=== PATIENT | male | born 1945 | race Caucasian/White ===

== ENCOUNTER → 2017-07-20 | Outpatient (CLI) | payer MEDICARE ==
[2017-07-20 12:10] LABS: Albumin 4.4 g/dL (3.5-5.0); Chloride 106 mmol/L (98-107); Cholesterol 176 mg/dL (<200); Glucose 91 mg/dL (74-99); Triglycerides 142 mg/dL (<150)
[2017-07-20 12:11] LABS: ALT 38 U/L (21-72); AST 32 U/L (17-59); Alkaline Phosphatase 73 U/L (38-126); Anion Gap 12 mmol/L; Blood Urea Nitrogen 16 mg/dL (9-20); Calcium 9.3 mg/dL (8.4-10.2); Carbon Dioxide 26 mmol/L (22-30); HDL Cholesterol 29 mg/dL (40-60); LDL Cholesterol,Calculated 119 mg/dL (0-99); Potassium 4.9 mmol/L (3.5-5.1); Sodium 144 mmol/L (137-145); Total Bilirubin 0.9 mg/dL (0.2-1.3)
== END | disposition home or self-care (01) ==
LOC: LABWHC1 11:00
PROVIDERS: ATTEND Internal Medicine Clinical Cardiac Electrophysiology
DX: E78.2 Mixed hyperlipidemia (principal); E03.9 Hypothyroidism, unspecified
CPT/HCPCS: 36415; 80053; 80061; 84443

== ENCOUNTER → 2018-06-23 | Outpatient (CLI) | payer MEDICARE ==
[2018-06-23 16:40] LABS: ALT 38 U/L (10-49); AST 35 U/L (14-35)
== END | disposition home or self-care (01) ==
LOC: LABWHC1 10:03
PROVIDERS: ATTEND Dermatology Dermatopathology
DX: B35.1 Tinea unguium (principal); Z79.899 Other long term (current) drug therapy
CPT/HCPCS: 36415; 84450; 84460

== ENCOUNTER → 2019-11-21 | Outpatient (CLI) | payer MEDICARE ==
[2019-11-21 12:20] LABS: HGB 15.8 gm/dL (13.0-17.5); MCH 34.3 pg (25.0-35.0); MCHC 33.6 g/dL (31.0-37.0); MCV 102.1 fL (80.0-100.0); Mean Platelet Volume 8.2; Platelet Count 192 k/uL (150-450); RDW 12.3 % (11.5-15.5); WBC 6.9 k/uL (3.8-10.6)
[2019-11-21 22:47] LABS: Anion Gap 10.3 mmol/L (4.00-12.00); Calcium 8.8 mg/dL (8.7-10.3); Carbon Dioxide 23.7 mmol/L (21.6-31.8); Chol/HDL Ratio 4.17; Non-African American GFR(CKD) 73.3 (60.0-200.0); Potassium 4.4 mmol/L (3.5-5.5)
== END | disposition home or self-care (01) ==
LOC: LABWHC1 10:16
PROVIDERS: ATTEND Physician Assistant
DX: Z00.00 Encounter for general adult medical examination without abnormal findings (principal); E55.9 Vitamin D deficiency, unspecified; R53.83 Other fatigue; I42.9 Cardiomyopathy, unspecified
CPT/HCPCS: 36415; 80048; 80061; 82306; 84443; 85027

== ENCOUNTER 2020-05-14 08:41 | Day surgery (SDC) | payer MEDICARE ==
[2020-05-08 12:02] VITALS: BMI 25.7
[~2020-05-14 08:41] MED LIST: LACTATED RINGERS 1,000 ML IV SCH
[2020-05-14 09:22] VITALS: RESP 16; TEMP 98.5
[2020-05-14] MEDS ORDERED: LIDOCAINE 1% (10MG/ML) FOR IV START INTRADERMA ONE (09:23)
[2020-05-14] MEDS ORDERED: PROPOFOL 10 MG/ML 20 ML VIAL IV ONE (09:47)
--- NOTE | 2020-05-14 10:34 | P.PCN ---
Date of Procedure: 05/14/20 Procedure(s) Performed: BRIEF HISTORY: Patient is a []-year-old pleasant [] scheduled for an elective colonoscopy as a part of screening for colorectal neoplasia. He has family history of colon cancer diagnosed in his father at age 80 PROCEDURE PERFORMED: Colonoscopy with snare polypectomy. PREOPERATIVE DIAGNOSIS: Screening for colon cancer and family history of colon cancer. IV sedation per Anesthesia. PROCEDURE: After informed consent was obtained, the patient, was brought into the endoscopy unit. IV sedation was administered by Anesthesia under continuous monitoring. Digital rectal examination was normal. Initially the Olympus CF-160 flexible video colonoscope was then inserted in the rectum, and could not be advanced in the sigmoid colon. Scope was removed and a. Colonoscopy was then inserted into the rectum and gradually gradually advanced into the cecum with moderate to severe difficulty. Careful examination was performed as the scope was gradually being withdrawn. Ileocecal valve and the appendiceal orifice were visualized and appeared normal. Prep was excellent. Mucosa of the cecum appeared normal. Ascending colon there were 2 polyps measuring 5 mm in size both of which were removed by snare polypectomy. Rest of the, ascending colon, transverse colon, descending colon, sigmoid colon, and rectum appeared normal. Extensive left-sided diverticulosis seen. Retroflexion was performed in the rectum and no lesions were seen. The patient tolerated the procedure well. IMPRESSION: 5 mm 2 ascending colon polyp status post polypectomy Severe sigmoid diverticulosis RECOMMENDATIONS: Findings of this examination were discussed with the patient as well as his family. He was advised to follow with the biopsy results. Recommend repeat colonoscopy in 5 years because of the family history of colon cancer.
[2020-05-14 10:50] VITALS: BP 117/74; PULSE 80
== END 2020-05-14 11:34 | disposition home or self-care (01) ==
LOC: ORWHC2ENDO 08:41
PROVIDERS: ATTEND Internal Medicine Gastroenterology
DX: Z12.11 Encounter for screening for malignant neoplasm of colon (principal); D12.2 Benign neoplasm of ascending colon; K57.30 Diverticulosis of large intestine without perforation or abscess without bleeding; I10 Essential (primary) hypertension; Z80.0 Family history of malignant neoplasm of digestive organs; Z79.82 Long term (current) use of aspirin; Z79.899 Other long term (current) drug therapy; Z88.0 Allergy status to penicillin
CPT/HCPCS: 88305; 45385; J2704

== ENCOUNTER → 2021-07-02 | Outpatient (CLI) | payer MEDICARE ==
--- NOTE | 2021-07-02 18:27 | CONS ---
CONSULTATION DATE OF SERVICE: 07/02/2021 This 76-year-old gentleman has been evaluated in Sleep Center for his sleep problems, which include difficulties initiating sleep and awakenings from sleep. HISTORY OF PRESENT ILLNESS/SLEEP-WAKE EVALUATION: Patient's usual sleep schedule is from between 11 p.m. and midnight until about 6 or 7 a.m. He does have problems with falling asleep, has a TV set in the bedroom. He usually sleeps on the back position. He does snore. He possibly has episodes of stopped breathing during sleep, which his ex- told him. In the morning he wakes up tired, has problems with memory. [place] Sleepiness Scale is 2. Usually the patient takes one nap a day, though. PAST MEDICAL HISTORY: Positive for dilated heart cardiomyopathy, hyperlipidemia. MEDICATIONS: 1. Ambien 10 mg at bedtime. 2. Effexor 37.5 mg once a day. 3. Metoprolol 25 mg once a day. 4. Atorvastatin 20 mg once a day. 5. Losartan 25 mg once a day. SOCIAL HISTORY: Negative for smoking. Alcohol consumption occasional. FAMILY HISTORY: Cancer. REVIEW OF SYSTEMS: Awakenings from sleep, difficulties initiating sleep, of sleepiness during the day. No fevers. No double vision. No recent chest pain. No shortness of breath. No abdominal pain. No bleeding episodes. No blood in the urine. No seizure episodes. PHYSICAL EXAMINATION: GENERAL: Pleasant gentleman without distress. VITAL SIGNS: BP 115/69, HR 77, RR 16, height 5 feet 11 inches, weight 190.8, temperature 97.3, oxygen saturation at room air 96%. HEENT: PERRLA, EOMI, evaluation of oropharynx showed tongue protrudes midline. Extremely low position of soft palate; Mallampati IV. NECK: Supple, no JVD. Thyroid is not palpable. Neck is wide; 17-1/4 inches in circumference. LUNGS: Clear to percussion and to auscultation. Good air exchange. No wheezing or rhonchi. HEART: S1, S2 regular. No murmurs, gallops, or rubs. ABDOMEN: Soft and nontender. Bowel sounds are present. No organomegaly appreciated. EXTREMITIES: No clubbing or cyanosis. BOTTLE BOOTH ATTENDANT: Awake, alert, and oriented X3. Cranial nerves 2 to 7 intact. There is no fasciculation or atrophy. noted. No focal deficits observed. IMPRESSION: 1. Snoring, episodes of stopped breathing during sleep in the past, extremely low position of soft palate, Mallampati IV, wide neck, 17-1/4 inches in circumference; obstructive sleep apnea-hypopnea syndrome. 2. History of restless leg symptoms. 3. Difficulties initiating sleep. Possible psychophysiological insomnia. 4. History of dilated cardiomyopathy. 5. Hyperlipidemia. PLAN: 1. Sleep hygiene with regular time in bed for 8 hours. 2. Polysomnogram for evaluation of patient's breathing during sleep and also to check for any leg movements at night. 3. Stimulus control, worry time, paradoxical intention. 4. Precautions related to driving. No driving if feeling sleepiness. 5. Following plan after reviewing results of sleep study. Thank you very much for referring this patient for consultation. Sincerely, Geronimo Ramirez MD, PhD, FAASM Diplomat of [place] [employer] Sleep Medicine Board of [place] [employer] Milling Machine Set Up Operator of [facility] [place] MMODL / IJN: [id number] /
== END | disposition home or self-care (01) ==
LOC: SLEEP 15:19
PROVIDERS: ATTEND Internal Medicine
DX: G47.33 Obstructive sleep apnea (adult) (pediatric) (principal); E78.5 Hyperlipidemia, unspecified; Z86.69 Personal history of other diseases of the nervous system and sense organs; Z98.890 Other specified postprocedural states
CPT/HCPCS: 99211

== ENCOUNTER → 2021-12-16 | Outpatient (CLI) | payer MEDICARE ==
--- NOTE | 2021-12-16 14:55 | P.PN ---
Subjective DATE: FOLLOW UP VISIT. Patient with obstructive sleep apnea hypopnea syndrome return to sleep center for follow-up visit. Recently patient had sleep study which documented obstructive sleep apnea hypopnea syndrome. Patient was initiated on PAP therapy and today is first visit after treatment was started. I discuss results of sleep studies with patient in details. Patient was able to use PAP equipment every night for the whole night. She did not feel comfortable with full face mask and to it was changed to nasal pillow m ask. The patient does not have significant problems with the mask, PAP pressure and humidification at the present time. [place] sleepiness scale is 3, which is totally normal. I checked information from PAP unit. PAP unit pressure 6-12, average 9.7 cm H2O. Usage is 90 % for more then 4 hours, average 7 hours per night. Leak is 5.1 l/m, which is in acceptable range. Apnea Hypopnea Index is 3.5, which is normal. MEDICATIONS:1. Metoprolol 25 mg once a day 2. Atorvastatin 20 mg once a day 3. Effexor 37.5 mg once a day 4. Losartan 25 mg once a day 5. Ambien 10 mg at bedtime, patient is trying to decrease the dose and using 5 mg if necessary During physical exam: GENERAL: A pleasant patient without any distress. VITAL SIGNS: BP 118/67, HR 75, RR 16, weight 189.8, temperature 97.1, oxygen saturation at room air 97. HEENT: PERRLA, EOMI.low position of soft palate, Mallapati 4 . NECK: Supple. No JVD. LUNGS: Clear to percussion and to auscultation. Good air exchange. No wheezing or rhonchi. HEART: S1, S2 regular. ABDOMEN: Soft and nontender.[] EXTREMITIES: No clubbing or cyanosis. STATION CLEANING PORTER: Awake, alert, and oriented x3. No focal deficit. Impressions: 1. Obstructive sleep apnea-hypopnea syndrome. Patient demonstrated great compliance with treatment, benefiting from treatment. 2. History of restless leg symptoms. 3. History of dilated cardiomyopathy. 4. History of difficulties to initiate sleep. Psychophysiological insomnia. Presently it is better.. 5. Hyperlipidemia. Plan: 1. Continue using PAP equipment every night for the whole night. 2. To change air filter at least 1-2 times per month. 3. PAP unit should stay lower then position of the head. 4. Advised patient to remove all remaining water from humidifier canister daily and make it dry after each usage. Refill canister with fresh distilled water before each usage. 5. Sleep hygiene with regular time in bed for at least 8 hours. 6. Precautions related to driving. No driving if feel any sleepiness. 7. I will maintain prescription for PAP supplies including mask, tube, filters. 8. Follow up visit in 6 months or earlier if patient has any problems. 9. Watching weight. Thank you very much for allowing me to participate in the management of your patient. Geronimo Ramirez MD, PhD, FAASM. Diplomat of [place] [employer], Sleep Medicine Board by [employer] Tunnel Elastic Operator [employer] of [facility] [place]
== END ==
LOC: SLEEP 13:57
PROVIDERS: ATTEND Internal Medicine
DX: G47.33 Obstructive sleep apnea (adult) (pediatric) (principal); E78.5 Hyperlipidemia, unspecified; Z99.89 Dependence on other enabling machines and devices; Z87.39 Personal history of other diseases of the musculoskeletal system and connective tissue; Z86.79 Personal history of other diseases of the circulatory system; Z88.0 Allergy status to penicillin

== ENCOUNTER → 2022-07-01 | Outpatient (CLI) | payer MEDICARE ==
--- NOTE | 2022-07-01 11:11 | P.PN ---
Subjective DATE: 07/01/2022 FOLLOW UP VISIT. Patient with obstructive sleep apnea hypopnea syndrome return to sleep center for follow-up visit. Information from previous visit have been reviewed. Patient is using PAP equipment every night for the whole night, getting PAP supplies in time. The patient does not have significant problems with the mask, PAP unit and humidification. [place] sleepiness scale is 5, which is normal. I checked information from PAP unit. PAP unit pressure 6-12, average 9.5 cm H2O. Usage is 90% and 83 % for more then 4 hours, average 6.5 hours per night. Leak is 3.0 l/m, which is in acceptable range. Apnea Hypopnea Index is 4.9, which is normal. MEDICATIONS:1. Venlafaxine 37.5 mg once a day 2. Zolpidem 5 mg once a day 3. Metoprolol 25 mg once a day 4. Atorvastatin 20 mg once a day 5. Losartan 25 mg once a day During physical exam: GENERAL: A pleasant patient without any distress. VITAL SIGNS: BP 124/66, HR 69, RR 12, weight 198.2, patient increased weight on 9 pounds, BMI 27.0, temperature 97.6, oxygen saturation at room air 96% . HEENT: PERRLA, EOMI.low position of soft palate, Mallapati 4 . NECK: Supple. No JVD. LUNGS: Clear to percussion and to auscultation. Good air exchange. No wheezing or rhonchi. HEART: S1, S2 regular. ABDOMEN: Soft and nontender.[] EXTREMITIES: No clubbing or cyanosis. DEPARTMENT MGR: Awake, alert, and oriented x3. No focal deficit. I teach patient how to adjust humidity in CPAP unit. Impressions: 1. Obstructive sleep apnea-hypopnea syndrome. Patient demonstrated great compliance with treatment, benefiting from treatment. 2. History of dilated cardiomyopathy. 3. Psychophysiological insomnia. 4. Hyperlipidemia. 5. History of rhinitis. Plan: 1. Continue using PAP equipment every night for the whole night. 2. To change air filter at least 1-2 times per month. 3. PAP unit should stay lower then position of the head. 4. Advised patient to remove all remaining water from humidifier canister daily and make it dry after each usage. Refill canister with fresh distilled water before each usage. 5. Sleep hygiene with regular time in bed for at least 8 hours. 6. Precautions related to driving. No driving if feel any sleepiness. 7. I will maintain prescription for PAP supplies including mask, tube, filters. 8. Watching weight. 9. Follow up visit in 6 months or earlier if patient has any problems. Thank you very much for allowing me to participate in the management of your patient. Geronimo Ramirez MD, PhD, FAASM. Diplomat of [place] [employer], Sleep Medicine Board by [place] [employer] Commercial Insurance Underwriter of [facility] [place]
== END ==
LOC: SLEEP 10:22
PROVIDERS: ATTEND Internal Medicine
DX: G47.33 Obstructive sleep apnea (adult) (pediatric) (principal); Z98.890 Other specified postprocedural states; E78.5 Hyperlipidemia, unspecified; J34.2 Deviated nasal septum; Z99.89 Dependence on other enabling machines and devices; Z79.899 Other long term (current) drug therapy; Z88.0 Allergy status to penicillin
CPT/HCPCS: 99212

== ENCOUNTER → 2023-01-13 | Outpatient (CLI) | payer MEDICARE ==
--- NOTE | 2023-01-13 11:51 | P.PN ---
Subjective DATE: 01/13/2023 FOLLOW UP VISIT. Patient with obstructive sleep apnea hypopnea syndrome return to sleep center for follow-up visit. Information from previous visit have been reviewed. Patient is using PAP equipment every night for the whole night, getting PAP supplies in time. The patient does not have significant problems with the mask, PAP unit and humidification. [place] sleepiness scale is 2. I checked information from PAP unit. PAP unit pressure 6-13, average 9.3 cm H2O. Usage is 90 % for more then 4 hours, average 6.75 hours per night. Leak is perfect 1.8 l/m. Apnea Hypopnea Index is 4.2, which is normal. MEDICATIONS:1. Metoprolol 25 mg once a day 2. Atorvastatin 20 mg once a day 3. Losartan 25 mg once a day 4. Venlafaxine 37.5 mg once a day 5. Zolpidem 5 mg once a day During physical exam: GENERAL: A pleasant patient without any distress. VITAL SIGNS: BP 112/62, HR 68, RR 12 , weight 197.2, temperature 97.7, oxygen saturation at room air 98 % . HEENT: PERRLA, EOMI.low position of soft palate, Mallapati 4 . NECK: Supple. No JVD. LUNGS: Clear to percussion and to auscultation. Good air exchange. No wheezing or rhonchi. HEART: S1, S2 regular. ABDOMEN: Soft and nontender.[] EXTREMITIES: No clubbing or cyanosis. E D TECH: Awake, alert, and oriented x3. No focal deficit. Impressions: 1. Obstructive sleep apnea-hypopnea syndrome. Patient demonstrated great compliance with treatment, benefiting from treatment. 2. History of dilated cardiomyopathy. 3. Psychophysiological insomnia. 4. Hyperlipidemia. 5. History of rhinitis. Plan: 1. Continue using PAP equipment every night for the whole night. 2. To change air filter at least 1-2 times per month. 3. PAP unit should stay lower then position of the head. 4. Advised patient to remove all remaining water from humidifier canister daily and make it dry after each usage. Refill canister with fresh distilled water before each usage. 5. Sleep hygiene with regular time in bed for at least 8 hours. 6. Precautions related to driving. No driving if feel any sleepiness. 7. I will maintain prescription for PAP supplies including mask, tube, filters. 8. Follow up visit in 6 months or earlier if patient has any problems. 9. Watching weight. Thank you very much for allowing me to participate in the management of your patient. Geronimo Ramirez MD, PhD, FAASM. Diplomat of [employer], Sleep Medicine Board by [employer] Investigative Analyst of [facility] [place]
== END ==
LOC: 3 N SLEEP 11:07
PROVIDERS: ATTEND Internal Medicine
DX: G47.33 Obstructive sleep apnea (adult) (pediatric) (principal); F51.04 Psychophysiologic insomnia; E78.5 Hyperlipidemia, unspecified; Z99.89 Dependence on other enabling machines and devices; Z88.0 Allergy status to penicillin; Z79.82 Long term (current) use of aspirin; Z87.09 Personal history of other diseases of the respiratory system; Z86.79 Personal history of other diseases of the circulatory system
CPT/HCPCS: 99212

== ENCOUNTER → 2023-05-05 | Outpatient (CLI) | payer MEDICARE ==
--- NOTE | 2023-05-06 04:10 | MR ---
EXAMINATION TYPE: MR lumbar spine wo con DATE OF EXAM: 05/05/2023 COMPARISON: Lumbar spine x-ray April 28, 2023 HISTORY: Back pain-bilateral buttocks down into back of thighs. Spondylosis and radiculopathy. TECHNIQUE: Multiplanar, multisequence imaging of the lumbar spine is performed without IV contrast. FINDINGS: Sagittal images of the lumbar spine show vertebral body heights to appear satisfactory. The re is grade 1 retrolisthesis L2 on L3, anterolisthesis L3 on L4, and grade 1 retrolisthesis L4 on L5 redemonstrated. Multilevel disc desiccation is present. There is advanced disc space narrowing at L5 -S1 level. There is mild to moderate disc space narrowing at L2-L3 level. The conus medullaris is nor mal in position and signal emptying into the inferior L1 level. The bone marrow signal intensity is within normal limits. Mild to moderate multilevel anterior spurring is seen. Posterior disc herniatio n at T11-T12 level effaces the anterior thecal sac on sagittal image 9 Axial images at T12-L1 level shows a mild broad-based disc bulge with right paracentral disc protrusi on component and annular tear mildly effacing the anterior thecal sac. Patent bilateral neural forami na. Axial images at L1-L2 level shows mild facet arthropathy bilaterally. Axial images at L2-L3 level shows spondylolisthesis with moderate bilateral facet arthropathy and lig amentum flavum hypertrophy effacing the bilateral posterolateral thecal sac. There is mild to moderat e broad-based disc bulge with left lateral disc protrusion component mildly effacing the anterior the solitario sac. Right-sided neural foramen is patent. Left-sided neural foramina shows mild to moderate narr owing. Axial images at L3-L4 level show moderate to advanced facet arthropathy and ligamentum flavum hypertr ophy effacing the posterior lateral thecal sac. There is mild/moderate broad-based posterior disc pro trusion with right foraminal disc protrusion component effacing the anterior thecal sac. There is mil d right greater than left bilateral neural foraminal narrowing. Axial images at L4-L5 levels with spondylolisthesis with moderate to advanced facet arthropathy and l igamentum flavum hypertrophy effacing the bilateral lateral thecal sac. There is moderate broad-based disc bulge effacing the anterior thecal sac. There is moderate left greater than right bilateral jay ral foraminal narrowing. Axial images at L5-S1 level show mild facet arthropathy. Spinal canal is preserved. Bilateral neural foramina are patent. Paraspinal muscle bulk is maintained. Some cortical thinning in both kidneys is seen. IMPRESSION: Multilevel spondylolisthesis and degenerative change in the lumbar spine as detailed grecia taylor
== END | disposition home or self-care (01) ==
LOC: RADMRIMAIN 20:15
PROVIDERS: ATTEND Orthopaedic Surgery
DX: M43.16 Spondylolisthesis, lumbar region (principal); M47.26 Other spondylosis with radiculopathy, lumbar region
CPT/HCPCS: 72148

== ENCOUNTER → 2023-06-01 | Outpatient (CLI) | payer MEDICARE ==
[2023-06-01 09:50] VITALS: BP 132/72; PULSE 77; RESP 15; TEMP 98.4
--- NOTE | 2023-06-01 14:52 | P.PAINPG ---
PQRS Measure Charge Sheet Comment: HISTORY OF PRESENT ILLNESS: A 78 yr old female as a referral from [facility] presents today w severe and chronic LBP > 1 yr secondary to DDD, spondylosis and facet arthropathy without myelopathy for evaluation. Pt states pain level is provoked at 9 /10 in intensity, constant, localized in the lumbar spine, predominantly axial, sore in character w occasional shooting pain towards the buttocks. Pain is provoked by bending. Pain is alleviated by PT x 6 wks which ended in May 2023, medications (Aleve), manual massage, repositioning and rest. Oswestry axial pain score at 29. PMH: OA, HTN, MDD PSH: Colonoscopies (2015, 2020), Polysomnography (2021) SH: Negative x3 FH: Non contributory All: See list Meds: See list REVIEW OF ORGAN SYSTEMS: CONSTITUTIONAL: No fevers or chills. No recent weight loss. NEUROLOGICAL: + numbness and tingling along the distal e xtremities. No seizure disorders or headaches. MUSCULOSKELETAL: + pain PSYCHIATRIC: Denies current depression or suicidal thoughts. Physical Examinations : Constitutional : Cooperative , not in acute distress . Neurologic : Cranial nerve II to XII intact. No focal neurological deficits. Psychiatric : alert & oriented x 3. Matching mood & appropriate affect. Judgment & insight intact. Musculoskeletal : Cervical Spine Motor strength in the deltoid and biceps: Normal right side. Normal Left side Motor strength biceps and the wrist extensors: Normal right side . Normal left side Motor strength in the triceps muscle: Normal right side. Normal left side Deep tendon reflexes: Normal at the biceps. Normal at Brachioradialis. Normal at triceps Vertebral body tenderness to deep palpation over Cervical facet loading test: positive bilaterally Spurling test: positive bilaterally Neck distraction test: positive bilaterally Darlene sign: positive bilaterally Lumbar spine Motor strength lower extremities ,thigh and legs 5/5 Right side , 5/5 Left side Deep tendon reflexes : Normal Knee Jerk. Normal Ankle Jerk Vertebral body tenderness over L4 Gomez Test positive Lumbar facet Loading Test: positive Right / positive Left Range of motion of the lumbar spine Flexion 30 degrees, extension 10 degrees Straight Leg Raise test: Left/ Right positive at < 35 degrees Sujatha test: positive right / positive left. Severe tenderness over the Sacroiliac joint on the Right / Left sides Gaenslen test: positive bilaterally Seated flexion test: positive bilaterally. Sacral spine : Severe tenderness over the Sacroiliac joint: right side / left side Range of motion: Flexion of the lumbar spine <60 degrees Range of motion: Extension of the lumbar spine <20 degrees Gaenslen's Test positive Sujatha test: positive right side / left side Thigh Thrust Test Sacral Thrust Test Imaging: MRI non contrast of the lumbar spine from 05/05/23 reviewed Assessment/ Plan : Lumbar DDD Recommendation of BL TFESI L4-L5 #1. Risks, benefits of procedure discussed and patient verbalized understanding. Admits to anti- coagulant use or medical history of diabetes. Protocol for discontinuation/ continuation of medications sharad procedure discussed. All questions answered. I have spent greater than 30 minutes on patient care today. Dr Landaverde was available by phone for the evaluation of this patient. The time was used to review the medical records including relevant urine studies and Prescription history (MAPs), review of the available imaging, evaluation and examination of the patient,/ coordination of care with the medical staff and if applicable r eferring physicians, as well as creation of the medical recor reviewedd PQRS Narrative: Smoking Status Never smoker Home Medications: Ambulatory Orders Melatonin 5 mg PO HS 03/27/15 Venlafaxine HCl ER [Effexor Xr] 37.5 mg PO QAM 03/27/15 Zolpidem [Ambien] 10 mg PO HS 03/27/15 Aspirin [Adult Low Dose Aspirin EC] 81 mg PO QAM 05/08/20 Atorvastatin [Lipitor] 20 mg PO HS 05/08/20 Losartan [Cozaar] 25 mg PO HS 05/08/20 Metoprolol Succinate (ER) [Toprol Xl] 25 mg PO QAM 05/08/20 Controlled Substance Measures - Controlled Substance Measures Is patient prescribed a controlled substance at discharge?: No
== END ==
LOC: PNWHC3 08:52
PROVIDERS: ATTEND Specialist
DX: M48.061 Spinal stenosis, lumbar region without neurogenic claudication (principal); M51.16 Intervertebral disc disorders with radiculopathy, lumbar region; M47.26 Other spondylosis with radiculopathy, lumbar region; Z88.0 Allergy status to penicillin
CPT/HCPCS: 99211

== ENCOUNTER → 2023-06-14 | Day surgery (SDC) | payer MEDICARE ==
[~2023-06-14] MED LIST changes: +IOPAMIDOL M200 10 ML VIAL ONE; +methylPREDNISolone ACETATE 40 MG/ML 1 ML VIAL ONE
[2023-06-14 08:00] VITALS: RESP 18; TEMP 97
--- NOTE | 2023-06-14 08:55 | P.PCN ---
Date of Procedure: 06/14/23 Procedure(s) Performed: PREOPERATIVE DIAGNOSIS: 1-lumbar degenerative disc disease. 2-lumbar spondylosis with lumbar facet arthropathy without myelopathy POSTOPERATIVE DIAGNOSIS: 1-lumbar degenerative disc disease. 2-lumbar spondylosis with facet arthropathy without myelopathy PROCEDURE 1. Transforaminal epidural steroid injection under fluoroscopic guidance at bilateral L4-5 level. (Fluoroscopy images stored on file in the radiology Department ) 2. Lumbar epidurogram . ANESTHESIA: Local with 1% lidocaine 3 ml. EBL: Minimal PROCEDURE INDICATION: The patient with low back pain and radiculopathy symptoms unresponsive to conservative treatment. PROCEDURE DESCRIPTION / TECHNIQUE: The patient was seen and identified in the preoperative area. Risks, benefits, complications, and alternatives were discussed with the patient. The patient agreed to proceed with the procedure and signed the consent. IV was started, and vital signs were stable. Patient was taken to the OR and time out was completed. The patient was placed in the prone position on procedure table and a pillow was placed under the abdomen to reduce lumbar lordosis. The lumbosacral area was prepped and draped in the usual sterile fashion. Critical pause was taken. Vital signs were closely monitored during the procedure. Using oblique fluoroscopy, the chin of the `AlbertinaSamir dog at right L4-5 level was identified, and the skin and deeper tissues just below was localized with 1% lidocaine. Subsequently, a 22-gauge 3.5-inch spinal needle was advanced under a tunneled view fluoroscopic guidance just underneath the chin of the `Mulugetay dog at the right L4-5 Under lateral fluoroscopy, the needle was then advanced to the posterior border of the interforaminal space. After negative aspiration of CSF and blood and with no paresthesias, 1 mL Isovue 200 contrast dye was injected excellent epidurogram and outlining of the nerve root Subsequently, 3 mL of block solution containing 20 mg Depo-Medrol and 2 mL of 0.9% normal saline PF was injected. Needle was removed and the same procedure was repeated at the left l4-5 level . At the end of the procedure, skin was cleansed, and bandages were applied. COMPLICATIONS:none DISPOSITION / PLANS: The patient was placed in a supine position and transferred to the recovery area in a stable condition for observation. There was no evidence of lower extremity motor or sensory deficit after the procedure. Patient was discharged from the recovery room after meeting discharge criteria. Home discharge instructions were given to the patient by the staff. The patient was reexamined prior to discharge.
--- NOTE | 2023-06-14 09:31 | FL ---
EXAMINATION TYPE: FL guided pain mgmt statistic Intraoperative/procedural fluoroscopic services were provided. Total fluoroscopy time is 8.1 seconds with a total of 2 submitted images to PACS. Please se e the operative/procedural note for further details. DAP: [id number]
[2023-06-14 09:34] VITALS: BP 112/67; PULSE 79
== END ==
LOC: ORPAIN 07:30
PROVIDERS: ATTEND Specialist
DX: M51.16 Intervertebral disc disorders with radiculopathy, lumbar region (principal); M47.26 Other spondylosis with radiculopathy, lumbar region; Z88.0 Allergy status to penicillin; Z88.4 Allergy status to anesthetic agent; Z79.82 Long term (current) use of aspirin
CPT/HCPCS: 64483; Q9966; J1010

== ENCOUNTER → 2023-06-29 | Outpatient (CLI) | payer MEDICARE ==
[2023-06-29 09:55] VITALS: BP 142/72; PULSE 98; RESP 15; TEMP 97.6
--- NOTE | 2023-06-29 14:47 | P.PAINPG ---
PQRS Measure Charge Sheet Comment: HISTORY OF PRESENT ILLNESS: A 78 yr old female presents today w severe and chronic LBP > 1 yr secondary to DDD, spondylosis and facet arthropathy without myelopathy for evaluation s/p BL TFESI L4-L5 #1. Pt states he experienced 40 % pain relief x 2 wks s/p procedure. Pt states pain level is provoked at 6 /10 in intensity, constant, localized in the lumbar spine, predominantly axial, sore in character without shooting pain. Pain is provoked w over activity Pain is alleviated by PT x 6 wks which ended in May 2023, physician guided stretches daily since May 2023, medications, manual massage, repositioning and rest. Oswestry axial pain score at 28. Interventional procedures include BL TFESI L4-L5 x1 Medications include Aleve REVIEW OF ORGAN SYSTEMS: CONSTITUTIONAL: No fevers or chills. No recent weight loss. NEUROLOGICAL: + numbness and tingling along the distal extremities. No seizure disorders or headaches. MUSCULOSKELETAL: + pain PSYCHIATRIC: Denies current depression or suicidal thoughts. Physical Examinations : Constitutional : Cooperative , not in acute distress . Neurologic : Cranial nerve II to XII intact. No focal neurological deficits. Psychiatric : alert & oriented x 3. Matching mood & appropriate affect. Judgment & insight intact. Musculoskeletal : Cervical Spine Motor strength in the deltoid and biceps: Normal right side. Normal Left side Motor strength biceps and the wrist extensors: Normal right side . Normal left side Motor strength in the triceps muscle: Normal right side. Normal left side Deep tendon reflexes: Normal at the biceps. Normal at Brachioradialis. Normal at triceps Vertebral body tenderness to deep palpation over Cervical facet loading test: positive b ilaterally Spurling test: positive bilaterally Neck distraction test: positive bilaterally Darlene sign: positive bilaterally Lumbar spine Motor strength lower extremities ,thigh and legs 5/5 Right side , 5/5 Left side Deep tendon reflexes : Normal Knee Jerk. Normal Ankle Jerk Vertebral body tenderness Gomez Test positive Lumbar facet Loading Test: positive Right / positive Left L4-L5, L5-S1 Range of motion of the lumbar spine Flexion 30 degrees, extension 10 degrees Straight Leg Raise test: Left/ Right positive at < 35 degrees Sujatha test: positive right / positive left. Severe tenderness over the Sacroiliac joint on the Right / Left sides Gaenslen test: positive bilaterally Seated flexion test: positive bilaterally. Sacral spine : Severe tenderness over the Sacroiliac joint: right side / left side Range of motion: Flexion of the lumbar spine <60 degrees Range of motion: Extension of the lumbar spine <20 degrees Gaenslen's Test positive Sujatha test: positive right side / left side Thigh Thrust Test Sacral Thrust Test Imaging: MRI non contrast of the lumbar spine from 05/05/23 reviewed Assessment/ Plan : Lumbar DDD Recommendation of BL MBB L3-L5 #1. May need a series of injections, up until RFA, for optimal pain relief. Risks, benefits of procedure discussed and patient verbalized understanding. Admits to anti- coagulant use or medical history of diabetes. Protocol for discontinuation/ continuation of medications sharad procedure discussed. Minimal anesthesia including Fentanyl and Versed if clinically indicated. All questions answered. I have spent greater than 30 minutes on patient care today. Dr Landaverde was available by phone for the evaluation of this patient. The time was used to review the medical records including relevant urine studies and Prescription history (MAPs), review of the available imaging, evaluation and examination of the patient,/ coordination of care with the medical staff and if applicable referring physicians, as well as creation of the medical recor reviewedd PQRS Narrative: Smoking Status Never smoker Hx Alcohol Use (MH) No Home Medications: Ambulatory Orders Melatonin 5 mg PO HS 03/27/15 Venlafaxine HCl ER [Effexor Xr] 37.5 mg PO QAM 03/27/15 Zolpidem [Ambien] 5 mg PO HS 03/27/15 Aspirin [Adult Low Dose Aspirin EC] 81 mg PO QAM 05/08/20 Atorvastatin [Lipitor] 20 mg PO HS 05/08/20 Losartan [Cozaar] 25 mg PO HS 05/08/20 Metoprolol Succinate (ER) [Toprol Xl] 25 mg PO QAM 05/08/20 Ascorbic Acid [Vitamin C] 500 mg PO DAILY 06/13/23 Cholecalciferol [Vitamin D3 (25 Mcg = 1000 Iu)] 25 mcg PO DAILY 06/13/23 Nicotinamide 500 mg PO BID 06/13/23 Zinc Gluconate [Zinc] 50 mg PO DAILY 06/13/23 Controlled Substance Measures - Controlled Substance Measures Is patient prescribed a controlled substance at discharge?: No
== END ==
LOC: PNWHC3 09:11
PROVIDERS: ATTEND Specialist
DX: M51.36 Other intervertebral disc degeneration, lumbar region (principal); Z88.0 Allergy status to penicillin; Z88.8 Allergy status to other drugs, medicaments and biological substances
CPT/HCPCS: 99211

== ENCOUNTER → 2023-07-27 | Outpatient (CLI) | payer MEDICARE ==
[2023-07-27 10:42] VITALS: BP 111/56; PULSE 70; RESP 16
--- NOTE | 2023-07-27 14:50 | P.PAINPG ---
PQRS Measure Charge Sheet Comment: HISTORY OF PRESENT ILLNESS: A 78 yr old female presents today w severe and chronic LBP > 1 yr secondary to DDD, spondylosis and facet arthropathy without myelopathy for evaluation s/p BL MBB L3-L5 #1. Pt states he experienced 90 % pain relief x 4 hrs s/p procedure. Pt states pain level is provoked at 6 /10 in intensity, constant, localized in the lumbar spine, predominantly axial, sore in character without shooting pain. Pain is provoked w over activity Pain is alleviated by PT x 6 wks which ended in May 2023, physician guided stretches daily since May 2023, medications, manual massage, repositioning and rest. Oswestry axial pain score at 27. Interventional procedures include BL TFESI L4-L5 x1, BL MBB L3-L5 x1 Medications include Aleve REVIEW OF ORGAN SYSTEMS: CONSTITUTIONAL: No fevers or chills. No recent weight loss. NEUROLOGICAL: + numbness and tingling along the distal extremities. No seizure disorders or headaches. MUSCULOSKELETAL: + pain PSYCHIATRIC: Denies current depression or suicidal thoughts. Physical Examinations : Constitutional : Cooperative , not in acute distress . Neurologic : Cranial nerve II to XII intact. No focal neurological deficits. Psychiatric : alert & oriented x 3. Matching mood & appropriate affect. Judgment & insight intact. Musculoskeletal : Cervical Spine Motor strength in the deltoid and biceps: Normal right side. Normal Left side Motor strength biceps and the wrist extensors: Normal right side . Normal left side Motor strength in the triceps muscle: Normal right side. Normal left side Deep tendon reflexes: Normal at the biceps. Normal at Brachioradialis. Normal at triceps Vertebral body tenderness to deep palpation over Cervical facet loading test: positive bilaterally Spurling test: positive bilaterally Neck distraction test: positive bilaterally Darlene sign: positive bilaterally Lumbar spine Motor strength lower extremities ,thigh and legs 5/5 Right side , 5/5 Left side Deep tendon reflexes : Normal Knee Jerk. Normal Ankle Jerk Vertebral body tenderness Gomez Test positive Lumbar facet Loading Test: positive Right / positive Left L4-L5, L5-S1 Range of motion of the lumbar spine Flexion 30 degrees, extension 10 degrees Straight Leg Raise test: Left/ Right positive at < 35 degrees Sujatha test: positive right / positive left. Severe tenderness over the Sacroiliac joint on the Right / Left sides Gaenslen test: positive bilaterally Seated flexion test: positive bilateral ly. Sacral spine : Severe tenderness over the Sacroiliac joint: right side / left side Range of motion: Flexion of the lumbar spine <60 degrees Range of motion: Extension of the lumbar spine <20 degrees Gaenslen's Test positive Sujatha test: positive right side / left side Thigh Thrust Test Sacral Thrust Test Imaging: MRI non contrast of the lumbar spine from 05/05/23 reviewed Assessment/ Plan : Lumbar DDD Recommendation of BL MBB L3-L5 #2. May need a series of injections, up until RFA, for optimal pain relief. Risks, benefits of procedure discussed and patient verbalized understanding. Admits to anti- coagulant use or medical history of diabetes. Protocol for discontinuation/ continuation of medications sharad procedure discussed. Minimal anesthesia including Fentanyl and Versed if clinically indicated. All questions answered. I have spent greater than 30 minutes on patient care today. Dr Landaverde was available by phone for the evaluation of this patient. The time was used to review the medical records including relevant urine studies and Prescription history (MAPs), review of the available imaging, evaluation and examination of the patient,/ coordination of care with the medical staff and if applicable referring physicians, as well as creation of the medical recor reviewedd PQRS Narrative: Smoking Status Never smoker Hx Alcohol Use (MH) No Home Medications: Ambulatory Orders Melatonin 10 mg PO HS 03/27/15 Venlafaxine HCl ER [Effexor Xr] 37.5 mg PO QAM 03/27/15 Zolpidem [Ambien] 5 mg PO HS 03/27/15 Aspirin [Adult Low Dose Aspirin EC] 81 mg PO QAM 05/08/20 Atorvastatin [Lipitor] 20 mg PO HS 05/08/20 Losartan [Cozaar] 25 mg PO QAM 05/08/20 Metoprolol Succinate (ER) [Toprol Xl] 25 mg PO HS 05/08/20 Ascorbic Acid [Vitamin C] 1,000 mg PO DAILY 06/13/23 Cholecalciferol [Vitamin D3 (25 Mcg = 1000 Iu)] 50 mcg PO DAILY 06/13/23 Nicotinamide 500 mg PO BID 06/13/23 Zinc Gluconate [Zinc] 25 mg PO DAILY 06/13/23 Controlled Substance Measures - Controlled Substance Measures Is patient prescribed a controlled substance at discharge?: No
== END ==
LOC: PNWHC3 09:41
PROVIDERS: ATTEND Specialist
DX: M51.37 Other intervertebral disc degeneration, lumbosacral region (principal); Z88.0 Allergy status to penicillin; Z88.8 Allergy status to other drugs, medicaments and biological substances
CPT/HCPCS: 99211

== ENCOUNTER 2023-08-05 10:34 | Day surgery (SDC) | payer MEDICARE ==
[2023-08-05] MEDS ORDERED: LACTATED RINGERS 1,000 ML IV SCH (10:42)
[2023-08-05 10:57] VITALS: BP 116/58; PULSE 69; RESP 16; TEMP 98.1
[2023-08-05] MEDS ORDERED: ROPIVACAINE 5MG/ML 20ML VIAL ONE (12:25)
--- NOTE | 2023-08-05 12:39 | P.PCN ---
Date of Procedure: 08/05/23 Procedure(s) Performed: PREOPERATIVE DIAGNOSIS : 1- Lumbar spondylosis with Facet Arthropathy without myelopathy . 2- Lumber degenerative disc disease POSTOPERATIVE DIAGNOSIS: 1- Lumbar spondylosis with Facet Arthropathy without myelopathy . 2- Lumber degenerative disc disease PROCEDURE: Diagnostic bilateral L3 , L4 , and L5 medial branch block under fluoroscopy guidance(fluoroscopy images available in the radiology Department ) ( To target the facet joint between Bilateral L4-5 , and L5- S1 )#2nd ANESTHESIA: Local anesthesia with ropivacaine 0.5% 6 ml only for skin and subcu infiltration. EBL: Minimal COMPLICATION: None PROCEDURE INDICATION: Chronic low back pain secondary to Facet arthropathy unresponsive to conservative treatment. PROCEDURE DESCRIPTION: the patient was seen and identified in the preop holding area , risks and benefits and possible complications of the procedure and alternative were discussed with the patient, and the patient agreed to proceed with the procedure and signed the consent and vital signs monitored d uring the procedure and fluoroscopy was used to maximize the benefit and accuracy of the needle placement, patient was taken to the procedure room and placed in prone position vital signs monitored in the back prepped with chlorhexidine X3 then under strict sterile technique using a right oblique fluoroscopy ,the junction of the transverse process and the superior articulating process of the right L3 , L4 , and L5 vertebra which corresponding to the fluoroscopy image of the eye of the Samir dog on the block side for the medial branches and subsequently , after local infiltration of skin and subcu tissuies with Ropivacaine 0.5 % , one mL at each level ,then 25-gauge Quincke-type needles , 3 needle was used , each one of them placed at the junction of the base of the transverse process and the superior articular process at the appropriate level, and the needle was advanced until the periosteum contacted, needle placement confirmed with AP oblique and lateral view and after appropriate needle placement confirmed, and after negative aspiration for heme and CSF and there was no paresthesia 1-1/2 mL of Ropivacaine 0.5% , then half mL injected at each level after negative aspiration the needle subsequently removed and the same procedure repeated for the left side at left side at L3 , L4, and L5 levels. At the end of the procedure and the needles removed and a bandage applied after the skin was cleaned the cleaning solution patient taken to recovery room in stable condition and monitors in the recovery room for 20-30 minutes and discharged home in stable condition after discharge criteria met and patient will follow up with the pain clinic in 2-4 weeks . note = patient requested no sedation for the procedure.
--- NOTE | 2023-08-05 13:12 | FL ---
EXAMINATION TYPE: FL guided pain mgmt statistic Intraoperative/procedural fluoroscopic services were provided. 8 sec FL .[id number] dap dose 5 images ''
== END 2023-08-05 13:37 | disposition home or self-care (01) ==
LOC: ORPAIN 10:34
PROVIDERS: ATTEND Specialist
DX: M47.816 Spondylosis without myelopathy or radiculopathy, lumbar region (principal); M51.36 Other intervertebral disc degeneration, lumbar region; Z88.0 Allergy status to penicillin; Z88.8 Allergy status to other drugs, medicaments and biological substances; Z79.82 Long term (current) use of aspirin
CPT/HCPCS: 64493; 64494 ×2; J2795

== ENCOUNTER → 2023-08-29 | Outpatient (CLI) | payer MEDICARE ==
[2023-08-29 09:32] VITALS: BP 149/78; PULSE 75; RESP 16; TEMP 97.7
--- NOTE | 2023-08-29 15:08 | P.PAINPG ---
PQRS Measure Charge Sheet Comment: HISTORY OF PRESENT ILLNESS: A 78 yr old female presents today w severe and chronic LBP > 1 yr secondary to DDD, spondylosis and facet arthropathy without myelopathy for evaluation s/p BL MBB L4-L5/ L5-S1 #2. Pt states he experienced 95 % pain relief x 4 hrs s/p procedure. Pt states pain level is provoked at 8 /10 in intensity, constant, localized in the lumbar spine, predominantly axial, sore in character without shooting pain. Pain is provoked w over activity Pain is alleviated by PT x 6 wks which ended in May 2023, physician guided stretches daily since May 2023, medications, manual massage, repositioning and rest. Oswestry axial pain score at 26. Interventional procedures include BL TFESI L4-L5 x1, BL MBB L4-L5/ L5-S1 x2 Medications include Aleve REVIEW OF ORGAN SYSTEMS: CONSTITUTIONAL: No fevers or chills. No recent weight loss. NEUROLOGICAL: + numbness and tingling along the distal extremities. No seizure disorders or headaches. MUSCULOSKELETAL: + pain PSYCHIATRIC: Denies current depression or suicidal thoughts. Physical Examinations : Constitutional : Cooperative , not in acute distress . Neurologic : Cranial nerve II to XII intact. No focal neurological deficits. Psychiatric : alert & oriented x 3. Matching mood & appropriate affect. Judgment & insight intact. Musculoskeletal : Cervical Spine Motor strength in the deltoid and biceps: Normal right side. Normal Left side Motor strength biceps and the wrist extensors: Normal right side . Normal left side Motor strength in the triceps muscle: Normal right side. Normal left side Deep tendon reflexes: Normal at the biceps. Normal at Brachioradialis. Normal at triceps Vertebral body tenderness to deep palpation over Cervical facet loading test: positive bilaterally Spurling test: positive bilaterally Neck distraction test: positive bilaterally Darlene sign: positive bilaterally Lumbar spine Motor strength lower extremities ,thigh and legs 5/5 Right side , 5/5 Left side Deep tendon reflexes : Normal Knee Jerk. Normal Ankle Jerk Vertebral body tenderness Gomez Test positive Lumbar facet Loading Test: positive Right / positive Left L4-L5, L5-S1 Range of motion of the lumbar spine Flexion 30 degrees, extension 10 degrees Straight Leg Raise test: Left/ Right positive at < 35 degrees Sujatha test: positive right / positive left. Severe tenderness over the Sacroiliac joint on the Right / Left sides Gaenslen test: positive bilaterally Seated flexion test: positive bilaterally. Sacral spine : Severe tenderness over the Sacroiliac joint: right side / left side Range of motion: Flexion of the lumbar spine <60 degrees Range of motion: Extension of the lumbar spine <20 degrees Gaenslen's Test positive Sujatha test: positive right side / left side Thigh Thrust Test Sacral Thrust Test Imaging: MRI non contrast of the lumbar spine from 05/05/23 reviewed Assessment/ Plan : Lumbar DDD Recommendation of BL RFA L4-L5, L5-S1. May benefit from BL SI injection at a later time. Exhibited optimal pain relief w prior BL MBB procedures. Risks, benefits of procedure discussed and patient verbalized understanding. Admits to anti- coagulant use or medical history of diabetes. Protocol for discontinuation/ continuation of medications sharad procedure discussed. Minimal anesthesia including Fentanyl and Versed if clinically indicated. All questions answered. I have spent greater than 30 minutes on patient care today. Dr Landaverde was available by phone for the evaluation of this patient. The time was used to review the medical records including relevant urine studies and Prescription history (MAPs), review of the available imaging, evaluation and examination of the patient,/ coordination of care with the medical staff and if applicable r eferring physicians, as well as creation of the medical recor reviewedd - Pain Location Bilateral Lower Back Non-Pharmacological Interventions: Heat, Inactivity, Physical Therapy, Sitting Pharmacological Interventions: Block, Epidural, PRN Medication PQRS Narrative: Smoking Status Never smoker Hx Alcohol Use (MH) No Home Medications: Ambulatory Orders Melatonin 10 mg PO HS 03/27/15 Venlafaxine HCl ER [Effexor Xr] 37.5 mg PO QAM 03/27/15 Zolpidem [Ambien] 5 mg PO HS 03/27/15 Aspirin [Adult Low Dose Aspirin EC] 81 mg PO QAM 05/08/20 Atorvastatin [Lipitor] 20 mg PO HS 05/08/20 Losartan [Cozaar] 25 mg PO QAM 05/08/20 Metoprolol Succinate (ER) [Toprol Xl] 25 mg PO HS 05/08/20 Ascorbic Acid [Vitamin C] 1,000 mg PO DAILY 06/13/23 Cholecalciferol [Vitamin D3 (25 Mcg = 1000 Iu)] 50 mcg PO DAILY 06/13/23 Nicotinamide 500 mg PO BID 06/13/23 Zinc Gluconate [Zinc] 25 mg PO DAILY 06/13/23 Controlled Substance Measures - Controlled Substance Measures Is patient prescribed a controlled substance at discharge?: No
== END ==
LOC: PNWHC3 09:08
PROVIDERS: ATTEND Specialist
DX: M51.37 Other intervertebral disc degeneration, lumbosacral region (principal); Z88.0 Allergy status to penicillin; Z88.8 Allergy status to other drugs, medicaments and biological substances
CPT/HCPCS: 99211

== ENCOUNTER 2023-09-09 13:02 | Day surgery (SDC) | payer MEDICARE ==
[2023-09-09 13:54] VITALS: TEMP 98
[2023-09-09] MEDS: IV FLUID CONTINUATION 1,000 ML IV ONE ×2 (13:55→14:50)
[2023-09-09] MEDS: LACTATED RINGERS 1,000 ML IV SCH (13:55)
[2023-09-09] MEDS: LIDOCAINE 1% (10MG/ML) FOR IV START INTRADERMA ONE (13:56)
[2023-09-09] MEDS ORDERED: fentaNYL (PF) 50 MCG/ML 2 ML AMP ONE (14:21)
[2023-09-09] MEDS ORDERED: TRIAMCINOLONE ACETONIDE 40 MG/ML 1 ML VIAL ONE (14:21)
[2023-09-09] MEDS ORDERED: ROPIVACAINE 5MG/ML 20ML VIAL ONE (14:21)
--- NOTE | 2023-09-09 14:46 | P.PCN ---
Date of Procedure: 09/09/23 Surgeon: Dwayne Avina Pathology: none sent Condition: stable Disposition: PACU Description of Procedure: PREOPERATIVE DIAGNOSIS: Lumbar spondylosis without myelopathy POSTOPERATIVE DIAGNOSIS: Lumbar spondylosis without myelopathy PROCEDURES : Bilateral Radiofrequency thermocoagulation L4-L5, and L5-S1 medial branch, with fluoroscopic guidance ANESTHESIA: Local with lidocaine 1% using 25-gauge needle and IV moderate conscious sedation with 100 g of fentanyl only Sedation time: 4503-3181 Physician: Dwayne Avina MD EBL: Minimal PROCEDURE INDICATION: The patient with low back pain secondary to lumbar facet arthropathy who had significant relief of pain with previous diagnostic lumbar medial branch block with Ropivacaine0.5%. PROCEDURE DESCRIPTION / TECHNIQUE: The patient was seen and identified in the preoperative area. Risks, benefits, complications, including but not limited to risk of infection ,bleeding , allergic reactions to the medications and no complete pain relief , and alternatives were discussed with the patient, the patient agreed to proceed with the procedure and signed the consent. IV was started. Vital signs remained stable throughout the procedure. Patient was taken to the OR and time out was completed. The patient was placed in the prone position on the procedure table. The lumber area was prepped and draped in the usual sterile fashion. . Vital signs were closely monitored during the procedure .IV sedation was used during the procedure to decrease patients anxiety. The target points were identified as follows: For the L5-S1 level which corresp onds to the dorsal ramus of L5 the target point was at the superior medial aspect of the sacral ala on the Rt side of the spine on the AP view of fluoroscopy and for the L3, and L4 medial branches the target points were at the connection between the transverse process and the superior articular process of L4, and L5 vertebra respectively on the Rt oblique view of fluoroscopy. skin was marked, and localized with 1% lidocaineat these points. Subsequently, an 18 [id number] radiofrequency needles with a 10-mm curved active tips were advanced guided by fluoroscopy to each of the target points mentioned above in a superior medial direction to get the active tips as parallel as possible to the medial branches tracks. AP, oblique, and lateral views of fluoroscopy were used to verify needle tips position. Each level then underwent motor testing at 2.5 Hz and 0 to 3 volt with local stimulation, but no radicular symptoms down the legs. I then injected 1 mL of lidocaine 1% in each needle before starting radiofrequency thermocoagulation at 80 degrees celsius for 90 seconds. After that I injected 1 ml of PF Ropivacaine 0.5%(3 mls) with 40 mg of Kenalog, 1 mL of this mixture was given in each needle before taking the needles out intact. Then the left side with the same levels was done in the same manner. At the end of the procedure, the skin was cleansed and bandages were applied. A copy of needle placement fluoroscopy was saved on the C-arm machine. COMPLICATIONS: No acute complications. DISPOSITION / PLANS: The patient was placed in a supine position and transferred to the recovery area in a stable condition for observation and was discharged from the recovery room after meeting discharge criteria. Home discharge instructions given to the patient by the staff. The patient was reexamined prior to discharge. The patient will schedule a follow up in the clinic in 2-4 weeks.
--- NOTE | 2023-09-09 15:04 | FL ---
Fluoroscopy History: RAD FREQ FB LUM AFUA Bilateral lumbar facet with Alosman. 18 sec fluoro time. .[id number] DAP. 6 images saved.
[2023-09-09 15:13] VITALS: BP 123/52; PULSE 78; RESP 16
== END 2023-09-09 15:21 | disposition home or self-care (01) ==
LOC: ORPAIN 13:02
PROVIDERS: ATTEND Anesthesiology
DX: M47.816 Spondylosis without myelopathy or radiculopathy, lumbar region (principal); I50.9 Heart failure, unspecified; Z79.82 Long term (current) use of aspirin; Z88.0 Allergy status to penicillin; Z88.8 Allergy status to other drugs, medicaments and biological substances
CPT/HCPCS: 64635; 64636 ×2; 99152; J3301; J3010; J2795

== ENCOUNTER → 2023-09-28 | Outpatient (CLI) | payer MEDICARE | LOC: PNWHC3 09:45 | PROVIDERS: ATTEND Specialist | DX: M46.1 Sacroiliitis, not elsewhere classified | CPT/HCPCS: 99211 ==

== ENCOUNTER → 2023-10-18 | Day surgery (SDC) | payer MEDICARE ==
[2023-10-14 12:18] VITALS: BMI 26.2
[~2023-10-18] MED LIST changes: -IOPAMIDOL M200 10 ML VIAL ONE; +IOPAMIDOL M300 15ML VIAL ONE; +ROPIVACAINE 5MG/ML 20ML VIAL ONE; -methylPREDNISolone ACETATE 40 MG/ML 1 ML VIAL ONE; +methylPREDNISolone ACETATE 80 MG/ML 1 ML VIAL ONE
[2023-10-18 12:26] VITALS: TEMP 98
--- NOTE | 2023-10-18 13:00 | P.PCN ---
Description of Procedure: Preprocedure diagnosis. Sacroiliac joint arthropathy. Postprocedure diagnosis. As above. Procedure done. Injection of the radio contrast material into bilateral/right/left sacroiliac joint, sacroiliac joint arthrogram, interpretation of arthrogram. Bilateral sacroiliac joint injection with local anesthetics and steroid under fluoroscopic guidance. Anesthesia. Local anesthetic infiltration. Continuous EKG, pulse ox, blood pressure, and verbal communication was maintained with the patient in OR. Blood loss. Minimal. Indication. Sacroiliac joint arthropathy. Discussed the procedure, alternatives, complications which may include infection,bleeding, nerve damage, aggravation of pain which could be permanent. Patient understands and questions were answered. Procedure note. After getting consent patient in OR in prone position. Back prepped with chlorhexidine and draped in sterile manner. After injecting 10 mL of 1% lidocaine subcutaneously, a 22-gauge spinal needle was introduced under tunnel vision of the fluoroscope in the lower and posterior one third of right sacroiliac joint. After needle position confirmation by AP and crosstable lateral view, 1 mL of Isovue 200 contrast was injected. Contrast was noted to be into the sacroiliac joint. After repeat negative aspiration, 2.5 mL solution was injected which consists of 1.5 ml of 0.5% Ropivacaine mixed with 1 mL of 40 mg Depo-Medrol. In exactly same way left sacroiliac joint was injected with same amount of solution. After the procedure needles were taken out. Bandage applied. Disposition. Patient tolerated the procedure well. No complication. Patient was discharged home in stable condition.
[2023-10-18 13:06] VITALS: BP 112/66; PULSE 80; RESP 14
--- NOTE | 2023-11-15 18:20 | FL ---
EXAMINATION TYPE: FL guided pain mgmt statistic DATE OF EXAM: 10/18/2023 1:05 PM COMPARISON: Pre Operative Images if available both CT/MRI or plain film CLINICAL INDICATION: Male, 78 years old with history of SI JOINT INJECTION; TECHNIQUE: FL guided pain mgmt statistic, multiple fluoroscopic images provided for procedure. Total fluoroscopy time: 42 seconds Total submitted images to PACS: 4 DAP: [id number] mGym2 Gycm2 uGym2 cGycm2 or equivalent. FINDINGS: Fluoroscopic images during injection for pain management demonstrate multilevel degeneration changes throughout the spine. No evidence for fracture. No acute process identified. IMPRESSION: 1. No evidence for intraoperative complication. 2. Please see the operative/procedural note for further details. [facility], , 11/15/2023 6:17 PM
== END ==
LOC: ORPAIN 12:07
PROVIDERS: ATTEND Pain Medicine Interventional Pain Medicine
DX: M46.1 Sacroiliitis, not elsewhere classified
CPT/HCPCS: 27096; G0260; 20552

== ENCOUNTER → 2023-10-27 | Outpatient (CLI) | payer MEDICARE ==
[2023-10-27 10:42] VITALS: BP 122/64; PULSE 69; RESP 18; TEMP 97.6
--- NOTE | 2023-10-27 11:19 | P.PROGSL ---
Subjective DATE: 10/27/2023 FOLLOW UP VISIT. Patient with obstructive sleep apnea hypopnea syndrome return to sleep center for follow-up visit. Information from previous visit have been reviewed. Patient is using PAP equipment every night for the whole night, getting PAP supplies in time. According to patient his CPAP unit had problems related to heated humidifier and he received loaner. The patient does not have significant problems with the mask, PAP unit and humidification. Ballinger sleepiness scale is 6, which is normal. I checked information from PAP unit. PAP unit pressure 6-13, average 9.6 cm H2O. Usage is 80% and 73% for more then 4 hours, average 6.25 hours per night. Leak is 0.6 l/m, which is in acceptable range. Apnea Hypopnea Index is 4.1, which is normal. MEDICATIONS have been reviewed, please see below. During physical exam: GENERAL: A pleasant patient without any distress. VITAL SIGNS: Please see below, weight is 190.2 lbs. HEENT: PERRLA, EOMI.low position of soft palate, Mallapati 4 . NECK: Supple. No JVD. LUNGS: Clear to percussion and to auscultation. Good air exchange. No wheezing or rhonchi. HEART: S1, S2 regular. ABDOMEN: Soft and nontender.[] EXTREMITIES: No clubbing or cyanosis. DATA MIGRATION LEAD: Awake, alert, and oriented x3. No focal deficit. Impressions: 1. Obstructive sleep apnea-hypopnea syndrome. Patient demonstrated good compliance with treatment, benefiting from treatment. 2. History of dilated cardiomyopathy. 3. Hyperlipidemia. 4. Psychophysiological insomnia. 5. History of rhinitis. Plan: 1. Continue using PAP equipment every night for the whole night. 2. Sleep hygiene with regular time in bed for at least 7.5-8 hours 3. PAP unit should stay lower then position of the head. 4. Advised patient to remove all remaining water from humidifier canister daily and make it dry after each usage. Refill canister with fresh distilled water before each usage. 5. Watching weight. 6. Precautions related to driving. No driving if feel any sleepiness. 7. I will maintain prescription for PAP supplies including mask, tube, filters. 8. Follow up visit in 6 months or earlier if patient has any problems. Thank you very much for allowing me to participate in the management of your patient. Geronimo Ramirez MD, PhD, FAASM. Diplomat of [place] [employer], Sleep Medicine Board by [place] [employer] Associate Professor Of [employer] of [facility] [place] Objective - Vital Signs Vital Signs: Vital Signs Temp 97.6 F 10/27/23 10:41 Pulse 69 10/27/23 10:41 Resp 18 10/27/23 10:41 BP 122/64 10/27/23 10:41 Pulse Ox 97 10/27/23 10:41 FiO2 Intake & Output 10/26/23 10/27/23 10/27/23 18:59 06:59 18:59 Weight 86.239 kg Home Medications: Home Medications Medication Instructions Recorded Confirmed Type Melatonin 10 mg PO HS 03/27/15 10/18/23 History Venlafaxine HCl ER [Effexor Xr] 37.5 mg PO QAM 03/27/15 10/18/23 History Zolpidem [Ambien] 5 mg PO HS 03/27/15 10/18/23 History Aspirin [Adult Low Dose Aspirin EC] 81 mg PO QAM 05/08/20 10/18/23 History Atorvastatin [Lipitor] 20 mg PO HS 05/08/20 10/18/23 History Losartan [Cozaar] 25 mg PO QAM 05/08/20 10/18/23 History Metoprolol Succinate (ER) [Toprol 25 mg PO HS 05/08/20 10/18/23 History Xl] Ascorbic Acid [Vitamin C] 1,000 mg PO DAILY 06/13/23 10/18/23 History Cholecalciferol [Vitamin D3 (25 50 mcg PO DAILY 06/13/23 10/18/23 History Mcg = 1000 Iu)] Nicotinamide 500 mg PO BID 06/13/23 10/18/23 History Zinc Gluconate [Zinc] 25 mg PO DAILY 06/13/23 10/18/23 History Ibuprofen [Advil] 600 - 800 mg PO DIRECTED PRN 09/08/23 10/18/23 History
== END ==
LOC: 3 N SLEEP 10:24
PROVIDERS: ATTEND Internal Medicine
CPT/HCPCS: 99212

== ENCOUNTER → 2023-10-31 | Outpatient (CLI) | payer MEDICARE ==
[2023-10-31 10:34] VITALS: BP 113/72; PULSE 80; RESP 17
--- NOTE | 2023-10-31 15:11 | P.PAINPG ---
PQRS Measure Charge Sheet Comment: HISTORY OF PRESENT ILLNESS: A 78 yr old female presents today w severe and chronic LBP > 1 yr secondary to DDD, spondylosis and facet arthropathy without myelopathy for evaluation s/p BL SI injection #1. Pt states he experienced 80 % pain relief s/p procedure. Pt states pain level is provoked at 2 /10 in intensity, constant, localized in the lumbar spine, predominantly axial, sore in character without shooting pain. Pain is provoked w over activity Pain is alleviated by PT x 6 wks which ended in May 2023, physician guided stretches daily since May 2023, medications, manual massage, repositioning and rest. Interventional procedures include BL TFESI L4-L5 x1, BL RFA L4-L5/ L5-S1 (Sep 2023), BL SI x1 (Oct 2023) Medications include Aleve REVIEW OF ORGAN SYSTEMS: CONSTITUTIONAL: No fevers or chills. No recent weight loss. NEUROLOGICAL: + numbness and tingling along the distal extremities. No seizure disorders or headaches. MUSCULOSKELETAL: + pain PSYCHIATRIC: Denies current depression or suicidal thoughts. Physical Examinations : Constitutional : Cooperative , not in acute distress . Neurologic : Cranial nerve II to XII intact. No focal neurological deficits. Psychiatric : alert & oriented x 3. Matching mood & appropriate affect. Judgment & insight intact. Musculoskeletal : Cervical Spine Motor strength in the deltoid and biceps: Normal right side. Normal Left side Motor strength biceps and the wrist extensors: Normal right side . Normal left side Motor strength in the triceps muscle: Normal right side. Normal left side Deep tendon reflexes: Normal at the biceps. Normal at Brachioradialis. Normal at triceps Vertebral body tenderness to deep palpation over Cervical facet loading test: positive bilaterally Spurling test: positive bilaterally Neck distraction test: positive bilaterally Darlene sign: positive bilaterally Lumbar spine Motor strength lower extremities ,thigh and legs 5/5 Right side , 5/5 Left side Deep tendon reflexes : Normal Knee Jerk. Normal Ankle Jerk Vertebral body tenderness Gomez Test positive Lumbar facet Loading Test: positive Right / positive Left L4-L5, L5-S1 Range of motion of the lumbar spine Flexion 30 degrees, extension 10 degrees Straight Leg Raise test: Left/ Right positive at < 35 degrees Sujatha test: positive right / positive left. Severe tenderness over the Sacroiliac joint on the Right / Left sides Gaenslen test: positive bilaterally Seated flexion test: positive bilaterally. Sacral spine : Severe tenderness over the Sacroiliac joint: right side / left side Range of motion: Flexion of the lumbar spine <60 degrees Range of motion: Extension of the lumbar spine <20 degrees Gaenslen's Test positive Sujatha test: positive right side / left side Thigh Thrust Test Sacral Thrust Test Imaging: MRI non contrast of the lumbar spine from 05/05/23 reviewed Assessment/ Plan : Lumbar DDD Will manage residual pain and may RTC on an as needed basis. Diclofenac gel 1 tube w 1 RF. Use, side effects, adverse reactions, safe storage discussed. All questions answered. I have spent greater than 30 minutes on patient care today. Dr Landaverde was available by phone for the evaluation of this patient. The time was used to review the medical records including relevant urine studies and Prescription history (MAPs), review of the available imaging, evaluation and examination of the patient,/ coordination of care with the medical staff and if applicable referring physicians, as well as creation of the medical record reviewed - Pain Location Lower Back Non-Pharmacological Interventions: Heat Pharmacological Interventions: Epidural, PRN Medication, Topical Medication PQRS Narrative: Smoking Status Never smoker Hx Alcohol Use (MH) No Home Medications: Ambulatory Orders Melatonin 10 mg PO HS 03/27/15 Venlafaxine HCl ER [Effexor Xr] 37.5 mg PO QAM 03/27/15 Zolpidem [Ambien] 5 mg PO HS 03/27/15 Aspirin [Adult Low Dose Aspirin EC] 81 mg PO QAM 05/08/20 Atorvastatin [Lipitor] 20 mg PO HS 05/08/20 Losartan [Cozaar] 25 mg PO QAM 05/08/20 Metoprolol Succinate (ER) [Toprol Xl] 25 mg PO HS 05/08/20 Ascorbic Acid [Vitamin C] 1,000 mg PO DAILY 06/13/23 Cholecalciferol [Vitamin D3 (25 Mcg = 1000 Iu)] 50 mcg PO DAILY 06/13/23 Nicotinamide 500 mg PO BID 06/13/23 Zinc Gluconate [Zinc] 25 mg PO DAILY 06/13/23 Ibuprofen [Advil] 600 - 800 mg PO DIRECTED PRN 09/08/23 Diclofenac Sodium Gel [Voltaren 1% Gel] 50 gm TOPICAL BID 30 Days #1 each 10/31/23 Controlled Substance Measures - Controlled Substance Measures Is patient prescribed a controlled substance at discharge?: No
== END ==
LOC: PNWHC3 10:10
PROVIDERS: ATTEND Specialist
DX: M46.1 Sacroiliitis, not elsewhere classified
CPT/HCPCS: 99211